=== PATIENT | female | born 1985 | race African-American/Black ===

== ENCOUNTER 2018-06-08 11:48 | Emergency (ER) | payer MEDICAID, OTHER ==
[~2018-06-08] VITALS: Ht 162.6 cm; Wt 65.0 kg
[2018-06-08 12:05] VITALS: BP 110/72
== END 2018-06-08 13:19 | disposition home or self-care (01) ==
LOC: ER 13:12
DX: H57.89 Other specified disorders of eye and adnexa (principal); F79 Unspecified intellectual disabilities; Z90.49 Acquired absence of other specified parts of digestive tract
CPT/HCPCS: 99281